=== PATIENT | female | born 1950 | race Caucasian/White ===

== ENCOUNTER 2019-10-11 15:25 | Emergency (ER) | payer OTHER, SELFPAY ==
--- NOTE | ~2019-10-11 | XR_ITS ---
EXAMINATION: XR chest 2V 10/11/2019 16:27 INDICATION: Cough with fever. Pulmonary hypertension. PROCEDURE: 2 view chest COMPARISON: No prior studies for comparison. FINDINGS: The lungs are clear. The cardiomediastinal silhouette is within normal limits. There are no pleural effusions. There is no pneumothorax suspected. The lungs are hyperinflated which is cons istent with, but not diagnostic of chronic obstructive pulmonary disease. IMPRESSION: 1: NO ACUTE CARDIOPULMONARY DISEASE. Reviewed, dictated and finalized at location A. RIMENTAL ASSEMBLER
[2019-10-11 15:29] VITALS: BP 120/71; PULSE 90; RESP 19; TEMP 37.3; O2SAT 99
--- NOTE | 2019-10-11 16:50 | ED.URI ---
HPI - URI/Sore Throat General Chief Complaint: Upper Respiratory Infection Stated Complaint: cough Time Seen by Provider: 10/11/19 16:17 Source: patient and RN notes reviewed Mode of arrival: ambulatory Limitations: no limitations History of Present Illness HPI Narrative: Pt is a 69 y/o female who presents to the ED with c/o moderate non-productive cough starting 5 days ago. She notes that she was seen at a [facility] for her symptoms, and states that she received a negative flu test. Pt reports wheezing for the past 3 nights and mild SOB accompanying her cough. She notes that her SOB is aggravated with exertion. Pt denies any fever or other symptoms. She notes that she recently received PFT that showed evidence of possible pulmonary hypertension. MD elicited complaint: cough Onset (ago): day(s) (5) Severity: moderate Associated symptoms: shortness of breath and other (wheezing) Related Data Allergies Allergy/AdvReac Type Severity Reaction Status Date / Time ciprofloxacin Allergy Intermediate Unknown Verified 10/11/19 16:46 codeine Allergy Intermediate DIZZINESS, Verified 10/05/14 15:30 VOMITING Iodinated Contrast Media Allergy Unknown Rash Verified 10/05/14 15:30 cefdinir Allergy Unknown Verified 10/11/19 16:46 dextrose Allergy Unknown Verified 10/11/19 16:46 iodine Allergy Unknown Verified 10/11/19 16:46 levofloxacin Allergy Unknown Verified 10/11/19 16:46 metrizamide Allergy Unknown Verified 10/11/19 16:46 shellfish derived Allergy Unknown Verified 10/11/19 16:46 CIPROFLOXACIN HCL Allergy Intermediate Unknown Uncoded 10/11/19 16:46 PSEUDOEPHEDRINE HCL Allergy Mild Unknown Uncoded 10/11/19 16:46 PROPOXYPHENE HCL Allergy Unknown Vomiting Uncoded 10/05/14 15:30 Review of Systems Review of Systems: All systems reviewed & are unremarkable except as noted in HPI and below Constitutional: Constitutional: Denies chills, Denies fever(s), Denies headache(s) and Denies weakness ENT: Denies headache(s) and Denies neck pain Cardiovascular: Cardiovascular: Denies chest pain Respiratory: Respiratory: Reports cough, Reports dyspnea and Reports wheezing Gastrointestinal: Gastrointestinal: Denies abdominal pain, Denies diarrhea, Denies nausea and Denies vomiting PMFSH Past Medical History Medical History Anemia Bronchitis GERD (gastroesophageal reflux disease) Pulmonary hypertension Shingles Sjogren's syndrome Surgical History Surgical History History of right oophorectomy Hx of hysterectomy Hx of tonsillectomy Social History Social History Smoking status: Never smoker Gender identity (if verbalized by the patient): Female Exam Const: General: no acute distress and well developed Orientation/consciousness: oriented to person, oriented to place, oriented to time and patient oriented x3 HENMT: Head: normocephalic Resp: Effort & Inspection: normal respiratory effort Auscultation: clear to auscultation bilaterally Cardio: Rate: regular rate Rhythm: regular rhythm GI: GI Palp: No abdominal tenderness and Yes Soft to palpation Skin: General skin exam: normal color and turgor normal Neuro: General: oriented to person, oriented to place, oriented to time and patient oriented x3 Cognition (Neuro): normal cognition Extrem: General: normal to inspection, full ROM and no pedal edema Psych: Appearance: grossly normal Mental Status: mental status grossly normal Affect: normal affect Course Vital Signs Vital signs: Vital Signs Temperature 37.3 C 10/11/19 15:29 Pulse Rate 90 10/11/19 15:29 Respiratory Rate 10/11/19 15:29 Blood Pressure 120/71 10/11/19 15:29 Pulse Oximetry 99 10/11/19 15:29 Temperature 37.3 C 10/11/19 15:29 Pulse Rate 90 10/11/19 15:29 Respiratory Rate 19 10/11/19 15:29 Blood Pressure 120/71 10/11
== END 2019-10-11 17:15 | disposition home or self-care (01) ==
PROVIDERS: Emergency Provider Emergency Medicine
DX: J06.9 Acute upper respiratory infection, unspecified (principal); K21.9 Gastro-esophageal reflux disease without esophagitis; M35.00 Sjogren syndrome, unspecified; I27.20 Pulmonary hypertension, unspecified
CPT/HCPCS: 71046; 87804; 99283

== ENCOUNTER 2020-09-12 14:10 | Emergency (ER) | payer MEDICARE, OTHER, SELFPAY ==
--- NOTE | ~2020-09-12 | CT_ITS ---
EXAMINATION: CT brain wo con INDICATION: Generalized weakness COMPARISON: None TECHNIQUE: Standard unenhanced head CT. The dose-length product (DLP) was 605.33 mGy-cm. The mA was a djusted according to patient size. Iterative reconstruction technique was employed. FINDINGS: Subtle low attenuation is seen in the left temporal lobe. There is no intracranial hemorrha ge or abnormal mass lesion. The ventricles are normal. There is no abnormal mass effect or midline sh ift. The carrasquillo-white matter differentiation is normal. The basal cisterns are patent. The orbits are n ormal. The paranasal sinuses, mastoids and calvarium are normal. IMPRESSION: 1. Subtle low attenuation of the left temporal lobe which could reflect subacute or old infarct. Reviewed, dictated and finalized at location A. DMAKER IMPRESSION: 1. Subtle low attenuation of the left temporal lobe which could reflect subacut e or old infarct.
[2020-09-12 14:14] VITALS: BP 140/72; PULSE 89; RESP 18; TEMP 36.4; O2SAT 100
--- NOTE | 2020-09-12 14:18 | ECG_ITS ---
Measurements Intervals [place] Rate: 90 P: 65 [place]: 164 QRS: 31 QRSD: 88 T: 54 QT: 368 QTc: 450 Interpretive Statements SINUS RHYTHM EARLY PRECORDIAL R/S TRANSITION BASELINE ARTIFACT- I, II, III, AVR, AVL, AVF BORDERLINE ECG Electronically Signed On 09-12-2020 16:32:24 MACHINE STONE POLISHER by Aurelio Rg D.O.
[2020-09-12 14:41] LABS: Basophils Absolute Auto 0.1 K/mm3 (0.0-0.1); Basophils Percent Auto 0.8 % (0.2-1.2); Eosinophils Absolute Auto 0.1 K/mm3 (0-0.3); Eosinophils Percent Auto 1.7 % (0-4.4); Hematocrit 40.3 % (37.0-47.0); Hemoglobin 13.3 g/dL (12.0-15.0); Immature Granulocyte Absolute 0.05 K/mm3 (0.00-0.031); Immature Granulocyte Percent A 0.8 % (0-0.5); Lymphocytes Absolute Auto 1.46 K/mm3 (0.9-3.2); Lymphocytes Percent Auto 22.7 % (18.3-44.2); Mean Corpuscular Hemoglobin 31.2 pg (26-34); Mean Corpuscular Volume 94.6 fl (80-100); Mean Platelet Volume 10.2 fl (7.4-10.4); Monocytes Absolute Auto 0.6 K/mm3 (0.1-0.6); Monocytes Percent Auto 8.7 % (2.6-8.5); Neutrophils Absolute Auto 4.2 K/mm3 (1.3-6.7); Neutrophils Percent Auto 65.3 % (45.5-73.1); Platelet Count Result 275 k/mm3 (150-375); Red Blood Count 4.26 M/mm3 (4.2-5.4); Red Cell Distribution Width 12.9 % (11.5-14.5); White Blood Count 6.4 K/mm3 (4.5-10.0)
[2020-09-12 14:54] LABS: Alanine Aminotransferase 18 U/L (4-35); Alkaline Phosphatase 108 U/L (38-126); Anion Gap 5 mmol/L (8-16); Aspartate Amino Transferase 31 U/L (14-36); Bilirubin,Total 0.4 mg/dL (0.2-1.3); Blood Urea Nitrogen 23 mg/dL (7-17); Carbon Dioxide 28 mmol/L (22-30); Chloride 105 mmol/L (98-107); Estimated CRCL calculation 73 ml/min; Estimated Glomerular Filt Rate > 60; Glucose 87 mg/dL (65-105); Potassium 3.8 mmol/L (3.4-5.0); Sodium 138 mmol/L (137-145)
--- NOTE | 2020-09-12 16:19 | ED.WEAKNESS ---
HPI - Weakness General Chief complaint: Weakness Stated complaint: weakness in legs x 2-3 weeks Time Seen by Provider: 09/12/20 15:44 History of Present Illness HPI Narrative: Intermittent leg weakness for the past 2 weeks. Not every day. Happens more often soon after standing, but can happen at any time. Yesterday had tingling in the right arm, which has resolved. She has a h/o BLE neuropathy. She has a h/o vertigo, she believes that this is a separate issue. No falls, loss of coordination, syncope, headache. Related Data Allergies Allergy/AdvReac Type Severity Reaction Status Date / Time ciprofloxacin Allergy Intermediate Unknown Verified 09/12/20 16:59 codeine Allergy Intermediate DIZZINESS, Verified 09/12/20 16:59 VOMITING Iodinated Contrast Media Allergy Unknown Rash Verified 09/12/20 16:59 cefdinir Allergy Unknown Verified 09/12/20 16:59 dextrose Allergy Unknown Verified 09/12/20 16:59 iodine Allergy Unknown Verified 09/12/20 16:59 levofloxacin Allergy Unknown Verified 09/12/20 16:59 metrizamide Allergy Unknown Verified 09/12/20 16:59 shellfish derived Allergy Unknown Verified 09/12/20 16:59 CIPROFLOXACIN HCL Allergy Intermediate Unknown Uncoded 09/12/20 16:59 PSEUDOEPHEDRINE HCL Allergy Mild Unknown Uncoded 09/12/20 16:59 PROPOXYPHENE HCL Allergy Unknown Vomiting Uncoded 09/12/20 16:59 Review of Systems Review of Systems: All systems reviewed & are unremarkable except as noted in HPI and below Constitutional: Constitutional: Denies fatigue and Denies fever(s) ENT: Denies sore throat Cardiovascular: Cardiovascular: Denies chest pain Respiratory: Respiratory: Denies dyspnea Gastrointestinal: Gastrointestinal: Denies nausea Genitourinary: Genitourinary: Reports nocturia and Denies dysuria Musculoskeletal: Musculoskeletal: Denies back pain Neurologic: Reports vertigo, Denies numbness and Denies weakness [facility] Past Medical History Medical History (Updated 09/13/20 @ 00:00 by Background Daemon) Anemia Bronchitis GERD (gastroesophageal reflux disease) Pulmonary hypertension Shingles Sjogren's syndrome Surgical History Surgical History History of right oophorectomy Hx of hysterectomy Hx of tonsillectomy Social History Social History Smoking status: Never smoker Gender identity (if verbalized by the patient): Female Exam Const: General: healthy appearing, no acute distress and alert Orientation/consciousness: patient oriented x3 HENMT: Head: normal to inspection Eyes: Pupils: Equal, round and reactive pupils present EOM: EOMs intact bilaterally Resp: Effort & Inspection: normal respiratory effort Auscultation: clear to auscultation bilaterally Cardio: Rate: regular rate Rhythm: regular rhythm GI: GI Palp: Yes Soft to palpation and No Tenderness to palpation present (GI) Skin: General skin exam: normal color Neuro: General: patient oriented x3, moves all extremities and CN's II-XI intact bilaterally Speech: normal speech Other: Mildly delayed [id number] without obvious cerebellar dysfunction Extrem: General: normal to inspection Course Vital Signs Vital signs: Vital Signs Temperature 36.4 C L 09/12/20 14:14 Pulse Rate 89 09/12/20 14:14 Respiratory Rate 18 09/12/20 14:14 Blood Pressure 140/72 09/12/20 14:14 Pulse Oximetry 100 09/12/20 14:14 Temperature 36.4 C L 09/12/20 14:14 Pulse Rate 87 09/12/20 17:59 Respiratory Rate 20 09/12/20 17:59 Blood Pressure 131/83 09/12/20 17:59 Pulse Oximetry 100 09/12/20 17:59 MDM - Weakness Differential Diagnosis Differential diagnosis: Likely other (UTI, anemia, CVA, vertigo, dehydration) Medical Records Attestation: I reviewed the patient's medical records. Lab Data Attestation: I reviewed the patient's lab results. Result diagrams: 09/12/20 14:35 09/12/20 14:35
[2020-09-12 16:35] LABS: Add Urine Microscopic? YES; Appearance Urine Cloudy (Clear); Bacteria Urine 2+ /hpf; Bilirubin Urine Negative (Negative); Color Urine Yellow (Yellow); Glucose Urine UA Negative (Negative); Ketones Urine Trace mg/dL (Negative); Leukocyte Esterase Ur 1+ LEU/UL (Negative); Mucus Urine Moderate /lpf; Nitrate Urine Positive (Negative); Protein Urine Negative (Negative); Squamous Epithelial Cell Urine Occasional /hpf (Few); Urobilinogen Urine Negative mg/dL (<2.0); WBC Urine 51-75 /hpf
[2020-09-12 16:37] LABS: Blood Urine Negative (Negative)
[2020-09-12 17:00] VITALS: BP 131/63; PULSE 87; RESP 14; O2SAT 100
[2020-09-12 17:59] VITALS: BP 131/83; PULSE 87; RESP 20; O2SAT 100
== END 2020-09-12 18:02 | disposition home or self-care (01) ==
PROVIDERS: Emergency Medicine; Emergency Provider Emergency Medicine
DX: N39.0 Urinary tract infection, site not specified (principal); R53.1 Weakness; Z86.2 Personal history of diseases of the blood and blood-forming organs and certain disorders involving the immune mechanism; K21.9 Gastro-esophageal reflux disease without esophagitis; I27.20 Pulmonary hypertension, unspecified; M35.00 Sjogren syndrome, unspecified
CPT/HCPCS: 36415; 70450; 80053; 81001; 85025; 87077; 87086; 87088; 87186; 93005; 99284

== ENCOUNTER 2022-06-29 13:00 | Outpatient (RCR) | payer MEDICARE, OTHER, SELFPAY ==
--- NOTE | 2022-04-07 16:53 | OTOPEVAL ---
Thank you for referring Kendy Hood to [facility].? The patient is scheduled to be seen for therapy? ____x/week for ___ weeks. Please review, sign, date and return this plan of care GARCIA. I agree with and certify that the following plan of care is medically necessary. Referring Physician Date Admitting Provider: Attending Provider: MICHELLE ROLLE Referring Provider: *OT Outpatient Evaluation Start: 04/07/22 07:51 Freq: Status: Active Protocol: Document 04/07/22 14:52 SLS (Rec: 04/07/22 16:36 [facility] [id number]) Therapy Assessment Status Assessment Status Assessment Status Evaluation Outpatient Past Medical History Past Medical History Source of Past Medical History Patient Respiratory History Hx Other Respiratory Disorders Yes: PULMONARY HYPERTENSION Musculoskeletal History Hx Other Musculoskeletal Disorders Yes: SJOGREN'S DISEASE Pain History History of Any Previous or Ongoing No Significant History Instance of Pain Evaluation Information Problem Diagnosis UE Weakness and coordination deficits Onset 03/22/2022 Cause Weakness Additional Evaluation Detail Weakness, balance deficits, dizziness Subjective Information Patient has had a change in Query Text:As Reported By Patient/ generalized weakness, balance Family and speech that has been progressing over multiple years. The patient began PT last year and has attempted to improve and maintain LE strength. The patient has had difficulties with household tasks, moving from sitting/ standing position and coordination. The patient reports feeling no pain but feeling much weaker within the last year. The patient reports 3 falls since August 2021. Prior to the decline, the patient was independent with all cartoonist special effects and was not experiencing balance deficits and falls. Prior Level of Function Home Setting Home Type House Living Situation With Spouse Support Available None Mobility Assistive Devices (Used Last 3 Cane Months) Bathroom Environment Bathtub, Standard Toileting Equipment Grab Bars Pain Assessment Timing of
--- NOTE | 2022-04-07 17:32 | PTOPEVAL ---
Thank you for referring Kendy Hood to [facility].? The patient is scheduled to be seen for therapy? 1-2x/week for 12 visits. Please review, sign, date and return this plan of care GARCIA. I agree with and certify that the following plan of care is medically necessary. Referring Physician Date Admitting Provider: Attending Provider: MICHELLE ROLLE Referring Provider: *PT Outpatient Evaluation Start: 04/07/22 14:58 Freq: Status: Active Protocol: Document 04/07/22 15:02 [facility] (Rec: 04/07/22 17:31 [facility] [email or web address]) Therapy Assessment Status Assessment Status Assessment Status Evaluation Outpatient Past Medical History Respiratory History Hx Other Respiratory Disorders Yes: PULMONARY HYPERTENSION Musculoskeletal History Hx Other Musculoskeletal Disorders Yes: SJOGREN'S DISEASE Evaluation Information Problem Diagnosis Unsteady gait Onset 04/07/2021 Subjective Information Pt reports weakness, balance, Query Text:As Reported By Patient/ and dizziness that has been Family worsening over the past year. Pt reports she has had an MRI with one MD telling her she has age-related changes and the other mentioning deficits with her cerebellum. She reports 3 falls since involving a mild injury to her tailbone that has since resolved. She reports these falls occured 2 times when taking a step backwards, and once when stepping onto an altered surface. Pt has been using an SPC for about the past year since her condition has been worsening. She has 2 sets of 2 steps in her house, both with a handrail. Her Jr has been assisting her with several household activities such as cleaning and cooking. Pt notes most difficulties with her balance when her eyes are closed, when she is getting up, or walking . Reports her dizziness as disequilibrium and occasional lightheadedness. Pt went to [facility] in [place] and reports
--- NOTE | 2022-04-11 08:24 | OTOPEVAL ---
Thank you for referring Kendy Hood to [facility].? The patient is scheduled to be seen for therapy? ____x/week for ___ weeks. Please review, sign, date and return this plan of care GARCIA. I agree with and certify that the following plan of care is medically necessary. Referring Physician Date Admitting Provider: Attending Provider: MICHELLE ROLLE Referring Provider: *OT Outpatient Evaluation Start: 04/07/22 07:51 Freq: Status: Active Protocol: Document 04/07/22 14:52 SLS (Rec: 04/07/22 16:36 [facility] [id number]) Therapy Assessment Status Assessment Status Assessment Status Evaluation Outpatient Past Medical History Past Medical History Source of Past Medical History Patient Respiratory History Hx Other Respiratory Disorders Yes: PULMONARY HYPERTENSION Musculoskeletal History Hx Other Musculoskeletal Disorders Yes: SJOGREN'S DISEASE Pain History History of Any Previous or Ongoing No Significant History Instance of Pain Evaluation Information Problem Diagnosis UE Weakness and coordination deficits Onset 03/22/2022 Cause Weakness Additional Evaluation Detail Weakness, balance deficits, dizziness Subjective Information Patient has had a change in Query Text:As Reported By Patient/ generalized weakness, balance Family and speech that has been progressing over multiple years. The patient began PT last year and has attempted to improve and maintain LE strength. The patient has had difficulties with household tasks, moving from sitting/ standing position and coordination. The patient reports feeling no pain but feeling much weaker within the last year. The patient reports 3 falls since August 2021. Prior to the decline, the patient was independent with all share holder and was not experiencing balance deficits and falls. Prior Level of Function Home Setting Home Type House Living Situation With Spouse Support Available None Mobility Assistive Devices (Used Last 3 Cane Months) Bathroom Environment Bathtub, Standard Toileting Equipment Grab Bars Pain Assessment Timing of
--- NOTE | 2022-04-18 15:24 | STOPEVAL ---
Thank you for referring Kendy Hood to [facility]Note 3[facility]? The patient is scheduled to be seen for therapy? 2x/week for 10 sessions. Please review, sign, date and return this plan of care GARCIA. I agree with and certify that the following plan of care is medically necessary. Referring Physician Date Admitting Provider: Attending Provider: MICHELLE ROLLE Referring Provider: ABRAHAN Outpatient Evaluation Start: 04/18/22 13:28 Freq: Status: Active Protocol: Document 04/18/22 13:28 [facility] (Rec: 04/18/22 15:24 [facility] [id number]) Therapy Assessment Status Assessment Status Assessment Status Evaluation Outpatient Past Medical History Past Medical History Source of Past Medical History Patient Respiratory History Hx Other Respiratory Disorders Yes: PULMONARY HYPERTENSION Musculoskeletal History Hx Other Musculoskeletal Disorders Yes: SJOGREN'S DISEASE Pain History History of Any Previous or Ongoing No Significant History Instance of Pain Anesthesia History Hx Anesthesia Reactions No Significant History Evaluation Information Problem Diagnosis R47.9 unspecified speech disturbance Additional Evaluation Detail Sj?gren syndrome Subjective Information Patient reports to recently Query Text:As Reported By Patient/ have an increase in difficulty Family speaking with impaired volume , pitch breaks, breathiness and hoarseness. Patient is very frustrated with her voice and often has to repeat herself in various environments. Patient also reported that she has difficulty swallowing but has recently seen some improvements. Diagnostic Tests MRI For This Problem Yes Previous Treatments Previous Treatments For This Problem NO previous ST treatment Pain Assessment Timing of Pain Assessment Timing of Pain Assessment Assessment Self Report Self Report Pain Level 0 Pain Score Pain Score 0: Self Report Voice Evaluation Voice History Voice History Patient began having voice difficulties around one year ago. She was diagnosed with Sjogren's syndrome years ago and it is an autoimmune disorder that attacks healthy cells for saliva and tear production. It is known to affect swallowing and voice (
--- NOTE | 2022-05-11 13:50 | PCSTNOTE ---
Patient called & cancelled scheduled appointment this date due to patient being sick
--- NOTE | 2022-05-18 18:25 | PTOPPROG ---
Evaluation Information Assessment Status Progress Diagnosis Unsteady gait Onset 04/07/2021 Subjective Information Pt denies falls since most recent session. She is happy with her progress with PT so far. Assessment PT Clinical Summary Pt presents to physical therapy with significant improvements in functional strength since her initial evaluation. She has made several improvements in her static and dynamic balance but still demonstrates limitations and is reliant on her SPC. She will continue to benefit from skilled PT to further decrease her risk for falls, improve her independence with activities, and help her return to functional and recreational activities. Plan of Care PT Services Indicated Yes Treatment Frequency and 1-2x week for 8 visits Duration These treatments will address the objective and functional deficits as defined above. The patient will be advanced safely and appropriately in order for the patient to progress towards his/her prior level of function. Additional exercises will be introduced and as well as a comprehensive home exercise program upon discharge, if needed, ?to ensure carryover of functional gains achieved in the clinic. This treatment plan has been reviewed and agreement upon by the patient.
--- NOTE | 2022-05-23 09:30 | PCSTNOTE ---
Appointment cancelled on May 18 due to SCIENTIFIC INFORMATICS LEADER being out of the office.
--- NOTE | 2022-06-06 14:10 | STOPREEVAL ---
Assessment and note entered by FRAN Sexton Evaluation Information Assessment Status Re-evaluation Reported Pain Level Pain Score 0: Self Report Assessment ST Clinical Summary Patient continues to demonstrate difficulty swallowing, voice and breathing during phonation. Patient reports that her voice has not gotten worse but continues to have to repeat herself frequently with vocal hoarseness and breathiness. Therapy will continue to focus on breathing strategies, resonant voice therapy to reduce tension in the vocal cords, and good vocal hygene. Therapy will also continue to focus on treatment for swallowing to reduce coughing with food and fluids. Recommendation for ST to target dysphagia and voice therapy 2x per week for 10 sessions. Plan of Care Interventions Treatment of Swallowing D,Other Other Interventions voice and swallowing Treatment Frequency and 2x/week for 10 sessions Duration These treatments will address the objective and functional deficits as defined above. The patient will be advanced safely and appropriately in order for the patient to progress towards his/her prior level of function. Additional exercises will be introduced and as well as a comprehensive home exercise program upon discharge, if needed, ?to ensure carryover of functional gains achieved in the clinic. This treatment plan has been reviewed and agreement upon by the patient.
--- NOTE | 2022-06-12 15:02 | OTOPPROG ---
Assessment and note entered by Kelle Lopez OT Evaluation Information Assessment Status Progress Assessment OT Clinical Summary The patient made significant progress in UE strength, stock preparer strength, and gross motor coordination improving the patient's ability to perform overhead self care tasks, maintain UE strength and perform homemaking tasks at home to assist . The patient did not make progress in R UE shoulder/elbow strength due to patient's continued shoulder pain and current medical condition affecting coordination and endurance. The patient has been educated on UE HEP and to return to MD to determine neurological deficits that could be present and affecting her balance, endurance, and speech. The patient continues to require skilled OT to address R shoulder pain, UE strength, stock preparer/pinch strength and gross motor coordination needed to perform self care tasks and assist patient's spouse with charge master coordinator. Plan of Care Interventions Therapeutic Exercise,Manual Therapy,Neuro Re- education,Therapeutic Activities,Hot Pack/Cold Pack,Electrical Stimulation,Self-Care/Home Management,Ultrasound OT Services Indicated Yes Treatment Frequency and 2x/week for 6 weeks Duration These treatments will address the objective and functional deficits as defined above. The patient will be advanced safely and appropriately in order for the patient to progress towards his/her prior level of function. Additional exercises will be introduced and as well as a comprehensive home exercise program upon discharge, if needed, ?to ensure carryover of functional gains achieved in the clinic. This treatment plan has been reviewed and agreement upon by the patient.
--- NOTE | 2022-06-15 15:12 | PTOPPROG ---
Assessment and note entered by Ирина Jimenez DPT Evaluation Information Assessment Status Progress Diagnosis Unsteady gait Onset 04/07/2021 Subjective Information Pt reports that she is doing well but feels shaky today. She continues to have R shoulder pain. She has not experienced any falls since her most recent session. She reports the most difficulty with her balance when walking down the 2 steps to her laundry room. Assessment PT Clinical Summary Pt presents to physical therapy with significant improvements in static balance testing and strength since her initial evaluation. However, she is still quite limited in dynamic balance especially when walking or using stairs. She will benefit from additional skilled PT to further decrease risk for falls, improve the aforementioned impairments, and increase independence with functional and recreational activities. Additionally, pt was encouraged to look into an ENT for her lasting and significant dizziness. Plan of Care PT Services Indicated Yes Treatment Frequency and 1x week for 6 visits Duration These treatments will address the objective and functional deficits as defined above. The patient will be advanced safely and appropriately in order for the patient to progress towards his/her prior level of function. Additional exercises will be introduced and as well as a comprehensive home exercise program upon discharge, if needed, ?to ensure carryover of functional gains achieved in the clinic. This treatment plan has been reviewed and agreement upon by the patient.
--- NOTE | 2022-07-10 14:15 | PCSTNOTE ---
This treatment is being continued on visit number [id number]. Please see documentation on both accounts to view progress. Completed interventions, outcomes, and problems have been marked as Inactive to facilitate the copying of the Care plan routine for recurring accounts.
== END 2023-01-09 23:59 | disposition home or self-care (01) ==
LOC: CHSST 13:00
DX: R47.9 Unspecified speech disturbances (principal); R26.89 Other abnormalities of gait and mobility; R49.0 Dysphonia
CPT/HCPCS: 92507; 92524; 92526; 97110; 97112; 97162; 97165; 97530

== ENCOUNTER 2022-09-26 13:00 | Outpatient (RCR) | payer MEDICARE, OTHER, SELFPAY ==
--- NOTE | 2022-07-10 14:29 | PCSTNOTE ---
The treatment documented on this account is a continuation of the treatment documented on visit number [id number]. Please see documentation on both accounts to view progress. The Plan of Care has been transitioned and updated within the new A#. I have addressed and agree with the discipline specific Problems, Interventions, and Goals for the current certification period. Completed interventions, outcomes, and problems have been marked as Inactive to facilitate the copying of the Care plan routine for recurring accounts.
--- NOTE | 2022-07-25 14:52 | OTOPPROG ---
Assessment and note entered by Kelle Lopez, OT Evaluation Information Assessment Status Progress Assessment OT Clinical Summary The patient has made significant progress in pain symptoms, L UE strength, and gross motor coordination affecting the patient's ability to perform self care tasks and maintain safety. The patient did not make progress in electricity trader/pinch strength and fine motor coordination due to fluctuating levels of tremors that make it difficult to maintain grasp of small items. The patient continues to require skilled OT to improve electricity trader/pinch strength, fine motor coordination, shoulder pain needed to maximize independence and avoid risk of decline. The patient requires continued skilled instruction to maintain UE strength and to maintain ROM of R shoulder. Plan of Care Interventions Therapeutic Exercise,Manual Therapy,Therapeutic Activities,Hot Pack/Cold Pack,Self-Care/Home Management,Ultrasound OT Services Indicated Yes Treatment Frequency and 1x/week for 10 visits. Duration These treatments will address the objective and functional deficits as defined above. The patient will be advanced safely and appropriately in order for the patient to progress towards his/her prior level of function. Additional exercises will be introduced and as well as a comprehensive home exercise program upon discharge, if needed, ?to ensure carryover of functional gains achieved in the clinic. This treatment plan has been reviewed and agreement upon by the patient.
--- NOTE | 2022-07-31 15:10 | PTOPEVAL1 ---
Assessment and note entered by Ирина Jimenez DPT Evaluation Information Assessment Status Progress Diagnosis Unsteady gait Onset 04/07/2021 Subjective Information Pt reports that she feels shaky today. Pt reports that she had to take a dizzy pill a couple of times this weekend. She has an appointment with her ENT on 09/13/21. Pt reports that she saw a new neurologist on Sunday who wants to perform an MRI of her neck and an EMG on her legs and arms, as well as a blood test. 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 She reports no LOB or falls since her last session. Pt reports that she still has the most difficulty with walking and stepping up and down steps/curbs. Reported Pain Level Pain Score 3: Self Report Assessment PT Clinical Summary Pt presents to physical therapy with continued slight improvements/maintenance of strength, balance, and endurance. Due to the seemingly progressive state of her condition and continued high risk for falls in combination with her improvements from PT so far, she would benefit from skilled maintenance PT going forward. Maintenance therapy is indicated as the patient would likely have a difficult time maintaining her current functional level without skilled PT to assist her. This date, the patient was educated on beginning to walk with a walker instead of just a cane to improve her safety in the home and out in the community, especially during increased fatigue or dizziness. Plan of Care PT Services Indicated Yes Treatment Frequency and 1x week for 10 visits Duration These treatments will address the objective and functional deficits as defined above. The patient will be advanced safely and appropriately in order for the patient to progress towards his/her prior level of function. Additional exercises will be introduced and as well as a comprehensive home exercise program upon discharge, if needed, ?to ensure carryover of functional gains achieved in the clinic. This treatment plan has been reviewed and agreement upon by the patient.
--- NOTE | 2022-07-31 16:03 | STOPPROG ---
Assessment and note entered by Natalie Walter ELECTRICAL AND INSTRUMENTATION MANAGER Evaluation Information Assessment Status Progress Assessment Status Progress Assessment ST Clinical Summary Patient continues to demonstrate difficulty swallowing, voice and breathing during phonation. Patient reports that her voice has not gotten worse but continues to have to repeat herself frequently with vocal hoarseness and breathiness. Therapy will continue to focus on breathing strategies, resonant voice therapy to reduce tension in the vocal cords, swallowing compensatory techniques, swallowing exercises, and speech intelligibility tasks. Recommendation for ST to continue to target dysphagia R13.10 and voice/speech therapy 1x per week for 10 sessions. Plan of Care Interventions Treatment of Speech,Treatment of Swallowing D, Treatment of Voice ST Services Indicated Yes Treatment Frequency and 1x/week for 10 sessions Duration These treatments will address the objective and functional deficits as defined above. The patient will be advanced safely and appropriately in order for the patient to progress towards his/her prior level of function. Additional exercises will be introduced and as well as a comprehensive home exercise program upon discharge, if needed, ?to ensure carryover of functional gains achieved in the clinic. This treatment plan has been reviewed and agreement upon by the patient.
--- NOTE | 2022-09-19 18:39 | PCSTNOTE ---
Patient's appointment was cancelled this date due to NURSE CLINICIAN being out of office due to sick child.
--- NOTE | 2022-09-26 15:29 | OTOPPROG ---
Assessment and note entered by Kelle oLpez OT Evaluation Information Assessment Status Progress Assessment OT Clinical Summary The patient demonstrates significant progress in R child psychometrist strength, fine motor coordination, and UE strength at this time affecting her ability to hold items for self care tasks and IADLs to contribute to her household. The patient did not make progress in, but maintained current function in pinch strength and shoulder pain due to continued progress toward goals. The patient reports she does not feel a decline in function and continues to work toward regaining strength and coordination. The patient demonstrates good carryover of exercises and activities given by therapist. The patient also demonstrates good potential to preserve function through current maintenance program in order to decrease her risk of falls at home and decline in independence. The patient maintains modified independence at home with ADLs and has assistance from spouse for IADLs as needed. The patient's fluctuating levels of fatigue, balance and endurance affect her ability to improve at this time due to undiagnosed neurological symptoms. The patient continues to seek medical intervention and requires continued OT to maintain function while seeking further medical assistance. Plan of Care Interventions Therapeutic Exercise,Manual Therapy,Neuro Re- education,Therapeutic Activities,Hot Pack/Cold Pack,Electrical Stimulation,Self-Care/Home Management,Ultrasound OT Services Indicated Yes Treatment Frequency and 1x/week for 10 visits. Duration These treatments will address the objective and functional deficits as defined above. The patient will be advanced safely and appropriately in order for the patient to progress towards his/her prior level of function. Additional exercises will be introduced and as well as a comprehensive home exercise program upon discharge, if needed, ?to ensure carryover of functional gains achieved in the clinic. This treatment plan has been reviewed and agreement upon by the patient.
--- NOTE | 2022-10-17 14:26 | PCSTNOTE ---
This treatment is being continued on visit number [id number]. Please see documentation on both accounts to view progress. Completed interventions, outcomes, and problems have been marked as Inactive to facilitate the copying of the Care plan routine for recurring accounts.
== END 2022-10-10 15:08 | disposition still patient (30) ==
LOC: CHSST 13:00
DX: R47.9 Unspecified speech disturbances (principal); R26.89 Other abnormalities of gait and mobility; R49.0 Dysphonia
CPT/HCPCS: 92507; 92526; 97110; 97112; 97140; 97530

== ENCOUNTER 2023-01-09 13:00 | Outpatient (RCR) | payer MEDICARE, OTHER, SELFPAY ==
--- NOTE | 2022-10-17 14:27 | PCSTNOTE ---
The treatment documented on this account is a continuation of the treatment documented on visit number [id number]. Please see documentation on both accounts to view progress. The Plan of Care has been transitioned and updated within the new A#. I have addressed and agree with the discipline specific Problems, Interventions, and Goals for the current certification period. Completed interventions, outcomes, and problems have been marked as Inactive to facilitate the copying of the Care plan routine for recurring accounts.
--- NOTE | 2022-10-17 15:49 | OTOPPROG ---
Assessment and note entered by Kelle Lopez OT Evaluation Information Assessment Status Progress Diagnosis Other abnormalities of gait and mobility Onset 2021 Subjective Information The patient reports she is continuing to seek answers from neurologist concerning her change in function. She reports she will be seeing a fishing vessel deckhand to address autoimmune disorder that she has been having symptoms with such as swallowing and her eyes being impacted. The patient reports that she performs some exercise at home with continuing to focus on treatment here. The patient reports she has not noticed a decline in function since treatment has started. Assessment OT Clinical Summary The patient demonstrates signficant progress in UE endurance, box lining machine feeder strength, pinch strength, and has maintained function of fine motor coordination of L hand leading to increased ability to dress self , prepare small meals, and maintain balance with FWW as needed to maintain safety at home. The patient demonstrates good participation during therapy sessions and is motivated to come to treatment. The patient's pain in shoulder has not changed, due to plateau in progress the patient was educated to contact her MD to address this issue. The patient demonstrates decreased trunk control with 3+/5 muscle strength in trunk flexion and demonstrates G-F+ static/dynamic sitting balance which affect her ability to sit on the EOB to dress self. The patient continues to demonstrate deficits in box lining machine feeder/pinch strength, sitting balance/trunk strength, UE endurance, and fine motor coordination which affect her ability to maintain highest level of independence within her home and decrease caregiver burden. The patient to continue with OT 1x/week to address these deficits and provide UE HEP to perform with 100% return demonstration in order to maintain strength and endurance at home. The patient requires skilled OT to address current deficits, decreasing patient's risk of decline and to ensure good transition to discharge as appropriate. Plan of Care Interventions Therapeutic Exercise,Manual Therapy,Neuro Re- education,Therapeutic Activities,Hot Pack/Cold Pack,Self-Care/Home Management,Ultrasound OT Services Indicated Yes Treatment Frequency and 1x/week for 10 visits. Duration These treatments will
--- NOTE | 2022-10-17 15:53 | OTOPPROG ---
Assessment and note entered by Kelle Lopez OT Evaluation Information Assessment Status Progress Diagnosis Other abnormalities of gait and mobility Onset 2021 Subjective Information The patient reports she is continuing to seek answers from neurologist concerning her change in function. She reports she will be seeing a rigging supervisor to address autoimmune disorder that she has been having symptoms with such as swallowing and her eyes being impacted. The patient reports that she performs some exercise at home with continuing to focus on treatment here. The patient reports she has not noticed a decline in function since treatment has started. Assessment OT Clinical Summary The patient demonstrates signficant progress in UE endurance, pacu nurse strength, pinch strength, and has maintained function of fine motor coordination of L hand leading to increased ability to dress self , prepare small meals, and maintain balance with FWW as needed to maintain safety at home. The patient demonstrates good participation during therapy sessions and is motivated to come to treatment. The patient's pain in shoulder has not changed, due to plateau in progress the patient was educated to contact her MD to address this issue. The patient demonstrates decreased trunk control with 3+/5 muscle strength in trunk flexion and demonstrates G-F+ static/dynamic sitting balance which affect her ability to sit on the EOB to dress self. The patient continues to demonstrate deficits in pacu nurse/pinch strength, sitting balance/trunk strength, UE endurance, and fine motor coordination which affect her ability to maintain highest level of independence within her home and decrease caregiver burden. The patient to continue with OT 1x/week to address these deficits and provide UE HEP to perform with 100% return demonstration in order to maintain strength and endurance at home. The patient requires skilled OT to address current deficits, decreasing patient's risk of decline and to ensure good transition to discharge as appropriate. Plan of Care Interventions Therapeutic Exercise,Manual Therapy,Neuro Re- education,Therapeutic Activities,Hot Pack/Cold Pack,Self-Care/Home Management,Ultrasound OT Services Indicated Yes Treatment Frequency and 1x/week for 10 visits. Duration These treatments will
--- NOTE | 2022-10-17 15:57 | OTOPEVAL1 ---
Assessment and note entered by Kelle Lopez OT Evaluation Information Assessment Status Progress Diagnosis Other abnormalities of gait and mobility Onset 2021 Subjective Information The patient reports she is continuing to seek answers from neurologist concerning her change in function. She reports she will be seeing a director of event sales to address autoimmune disorder that she has been having symptoms with such as swallowing and her eyes being impacted. The patient reports that she performs some exercise at home with continuing to focus on treatment here. The patient reports she has not noticed a decline in function since treatment has started. Reported Pain Level Pain Score 0: Self Report Pain Score 0: Self Report Additional Pain Score Comments Patient reports pain in shoulder at it's worse at 3/10 which has not changed since treatment has begun. Assessment OT Clinical Summary The patient demonstrates signficant progress in UE endurance, second watch sergeant strength, pinch strength, and has maintained function of fine motor coordination of L hand leading to increased ability to dress self , prepare small meals, and maintain balance with FWW as needed to maintain safety at home. The patient demonstrates good participation during therapy sessions and is motivated to come to treatment. The patient's pain in shoulder has not changed, due to plateau in progress the patient was educated to contact her MD to address this issue. The patient demonstrates decreased trunk control with 3+/5 muscle strength in trunk flexion and demonstrates G-F+ static/dynamic sitting balance which affect her ability to sit on the EOB to dress self. The patient continues to demonstrate deficits in second watch sergeant/pinch strength, sitting balance/trunk strength, UE endurance, and fine motor coordination which affect her ability to maintain highest level of independence within her home and decrease caregiver burden. The patient to continue with OT 1x/week to address these deficits and provide UE HEP to perform with 100% return demonstration in order to maintain strength and endurance at home. The patient requires skilled OT to address current deficits, decreasing patient's risk of decline and to ensure good transition to discharge as appropriate. Plan of Care Interventions T
--- NOTE | 2022-10-20 08:27 | BUOTOPEVAL ---
Assessment and note entered by Kelle Lopez OT Evaluation Information Assessment Status Progress Diagnosis Other abnormalities of gait and mobility Onset 2021 Subjective Information The patient reports she is continuing to seek answers from neurologist concerning her change in function. She reports she will be seeing a chemical unit operator to address autoimmune disorder that she has been having symptoms with such as swallowing and her eyes being impacted. The patient reports that she performs some exercise at home with continuing to focus on treatment here. The patient reports she has not noticed a decline in function since treatment has started. Reported Pain Level Pain Score 0: Self Report Pain Score 0: Self Report Pain Score 0: Self Report Additional Pain Score Comments Patient reports pain in shoulder at it's worse at 3/10 which has not changed since treatment has begun. Assessment OT Clinical Summary The patient demonstrates signficant progress in UE endurance, ballistics expert forensic strength, pinch strength, and has maintained function of fine motor coordination of L hand leading to increased ability to dress self , prepare small meals, and maintain balance with FWW as needed to maintain safety at home. The patient demonstrates good participation during therapy sessions and is motivated to come to treatment. The patient's pain in shoulder has not changed, due to plateau in progress the patient was educated to contact her MD to address this issue. The patient demonstrates decreased trunk control with 3+/5 muscle strength in trunk flexion and demonstrates G-F+ static/dynamic sitting balance which affect her ability to sit on the EOB to dress self. The patient continues to demonstrate deficits in ballistics expert forensic/pinch strength, sitting balance/trunk strength, UE endurance, and fine motor coordination which affect her ability to maintain highest level of independence within her home and decrease caregiver burden. The patient to continue with OT 1x/week to address these deficits and provide UE HEP to perform with 100% return demonstration in order to maintain strength and endurance at home. The patient requires skilled OT to address current deficits, decreasing patient's risk of decline and to ensure good transition to di
--- NOTE | 2022-10-24 16:21 | PTOPDC ---
Assessment and note entered by Erinn Troy DPT Evaluation Information Assessment Status Re-evaluation Diagnosis Unsteady gait Onset 04/07/2021 Subjective Information patient reports that much has changed functionally with walking, stair navigation or getting up and down. she states that her shoulder is ther primary pain location but denies LE pain or discomfort. she reports she continues to use the walker at all times and needs help from her for stair navigation into the house. She denies falls since last re-evaluation Reported Pain Level Pain Score 0: Self Report Pain Score 0: Self Report Additional Pain Score Comments Patient reports pain in shoulder at it's worse at 3/10 which has not changed since treatment has begun. Assessment PT Clinical Summary Patient is a 72 year old female who presents today for a re-evalulation from 04/07/22-10/24/22. Today she presents with no functional or objective improvements towards goals. She denies falls but requires walker at all times as well as assist from her for stair navigation. Patient was provided a HEP handout and demonstrates good understanding of program at this time. Patient will be discharged to independent [facility]. Plan of Care PT Services Indicated No Treatment Frequency and DC to independent HEP Duration
--- NOTE | 2022-10-24 16:23 | PTOPDC ---
Assessment and note entered by Erinn Troy DPT Evaluation Information Assessment Status Re-evaluation Diagnosis Unsteady gait Onset 04/07/2021 Subjective Information patient reports that not much has changed functionally with walking, stair navigation or getting up and down. she states that her shoulder is ther primary pain location but denies LE pain or discomfort. she reports she continues to use the walker at all times and needs help from her for stair navigation into the house. She denies falls since last re-evaluation Reported Pain Level Pain Score 0: Self Report Pain Score 0: Self Report Assessment PT Clinical Summary Patient is a 72 year old female who presents today for a re-evalulation from 04/07/22-10/24/22. Today she presents with no functional or objective improvements towards goals. She denies falls but requires walker at all times as well as assist from her for stair navigation. Patient was provided a HEP handout and demonstrates good understanding of program at this time. Patient will be discharged to independent HEP. Plan of Care PT Services Indicated No Treatment Frequency and DC to independent HEP Duration
--- NOTE | 2022-10-31 14:09 | STOPREEVAL ---
Assessment and note entered by Natalie Walter DIGITAL MUSIC INSTRUCTOR Evaluation Information Assessment Status Re-evaluation Reported Pain Level Pain Score 0: Self Report Assessment ST Clinical Summary Patient has attended 10 treatment sessions with speech therapy. Patient continues to demonstrate mild difficulty swallowing, voice, speech intelligibility and breathing during phonation. Patient reports that her voice has not gotten worse but continues to have to repeat herself frequently with vocal hoarseness and breathiness. Therapy will continue to focus on breathing strategies, SLOP B (slow, loud, over articulate, pause and breath) at conversation level, swallowing compensatory techniques, swallowing exercises, and speech intelligibility tasks. Recommendation for ST to continue to target dysphagia R13.10 and voice/speech therapy 1x per week for 10 sessions. Discussion with patient regarding plan to discharge after these 10 sessions. Plan of Care Interventions Treatment of Speech,Treatment of Swallowing D, Treatment of Voice ST Services Indicated Yes Treatment Frequency and 1x/week for 10 sessions Duration These treatments will address the objective and functional deficits as defined above. The patient will be advanced safely and appropriately in order for the patient to progress towards his/her prior level of function. Additional exercises will be introduced and as well as a comprehensive home exercise program upon discharge, if needed, ?to ensure carryover of functional gains achieved in the clinic. This treatment plan has been reviewed and agreement upon by the patient.
--- NOTE | 2023-01-09 15:13 | STOPDC ---
Assessment and note entered by Natalie Walter RECORD CHANGER Evaluation Information Assessment Status Discharge Diagnosis voice, speech intelligibility, and dysphagia Onset over one year Reported Pain Level Pain Score 0: Self Report Assessment ST Clinical Summary Patient has attended a total of 40 treatment sessions with speech therapy to target dysphagia, speech intelligibility, and voice. Patient currently presents with very little difficulty swallowing (one coughing epsiode or less with po intake per week), mild voice difficulties, and 90% intelligible speech at the conversation level. Patient continues to demonstrate with difficulty coordinating oral motor movements for more complex words and sentences. Patient reports that she has noticed a significant improvement in her overall swallowing function and is very happy with how she is doing. She reported that she continues to struggle with coordination for oral motor movements but feels that she is doing overall better and has to repeat herself less often. Patient's spouse reported that he continues to hear improvement in the patient's overall speech skills. Patient is happy with the progress that has been achieved and education was given regarding activities to continue at home to promote carryover/generalization of skills. Patient has met goals for speech intelligibility and swallowing and ST is no longer warranted at this time. Plan of Care ST Services Indicated No
--- NOTE | 2023-09-06 13:29 | PCOTNOTE ---
Patient discharged with HEP; >30 days since last treatment.
== END 2023-01-09 15:46 | disposition home or self-care (01) ==
LOC: CHSST 13:00
DX: R47.9 Unspecified speech disturbances (principal); R26.89 Other abnormalities of gait and mobility; R49.0 Dysphonia
CPT/HCPCS: 92507; 92526; 97110; 97112; 97530

== ENCOUNTER 2023-01-28 15:09 | Emergency (ER) | payer MEDICARE, OTHER, SELFPAY ==
--- NOTE | ~2023-01-28 | XR_ITS ---
EXAMINATION: XR chest 2V Exam Date/Time: 01/28/2023 15:51 CDT HISTORY: Weakness Comparison: 10/11/2019. RESULT: Lines, tubes, and devices: None. Lungs and pleura: Senescent and emphysematous change. Chronic costophrenic angle blunting. Cardiomediastinal silhouette: Stable. Other: No acute osseous or upper abdominal finding. IMPRESSION: No acute cardiopulmonary process. Reviewed, dictated and finalized at location K.
[2023-01-28 15:24] VITALS: BP 102/57; PULSE 77; RESP 19; TEMP 37; O2SAT 99
--- NOTE | 2023-01-28 15:38 | ECG_ITS ---
Measurements Intervals [place] Rate: 68 P: 58 IN: 151 QRS: 14 QRSD: 79 T: 44 QT: 396 QTc: 422 Interpretive Statements SINUS RHYTHM NORMAL ECG COMPARED TO ECG 09/12/2020 14:46:06 NO SIGNIFICANT CHANGES Electronically Signed On 01-28-2023 21:59:07 CDT by Aurelio Rg D.O.
[2023-01-28 15:42] VITALS: PULSE 69
[2023-01-28 15:44] LABS: Basophils Percent Auto 0.3 % (0.2-1.2); Hematocrit 39.9 % (37.0-47.0); Hemoglobin 12.9 g/dL (12.0-15.0); Immature Granulocyte Absolute 0.01 K/mm3 (0.00-0.031); Immature Granulocyte Percent A 0.3 % (0-0.5); Lymphocytes Absolute Auto 0.82 K/mm3 (0.9-3.2); Lymphocytes Percent Auto 20.7 % (18.3-44.2); Mean Corpuscular HGB Conc 32.3 g/dl (32-36); Mean Corpuscular Hemoglobin 30.1 pg (26-34); Mean Platelet Volume 10.4 fl (7.4-10.4); Monocytes Absolute Auto 0.6 K/mm3 (0.1-0.6); Monocytes Percent Auto 13.9 % (2.6-8.5); Neutrophils Absolute Auto 2.6 K/mm3 (1.3-6.7); Neutrophils Percent Auto 64.8 % (45.5-73.1); Platelet Count Result 205 k/mm3 (150-375); Red Blood Count 4.29 M/mm3 (4.2-5.4); Red Cell Distribution Width 13.2 % (11.5-14.5)
[2023-01-28 16:01] LABS: Alanine Aminotransferase 23 U/L (6-35); Albumin Level 4.1 g/dL (3.5-5.1); Alkaline Phosphatase 90 U/L (38-126); Anion Gap 9 mmol/L (8-16); Aspartate Amino Transferase 36 U/L (14-36); Bilirubin,Total 0.4 mg/dL (0.2-1.3); Blood Urea Nitrogen 19 mg/dL (7-17); Calcium 8.6 mg/dL (8.4-10.2); Carbon Dioxide 26 mmol/L (22-30); Chloride 99 mmol/L (98-107); Estimated CRCL calculation 53 ml/min; Estimated Glomerular Filt Rate > 60; Glucose 82 mg/dL (65-110); Potassium 3.8 mmol/L (3.4-5.0); Sodium 134 mmol/L (137-145)
[2023-01-28 16:44] VITALS: BP 102/64; PULSE 73; RESP 18; O2SAT 99
[2023-01-28] MEDS: SODIUM CHLORIDE 0.9% IV 1,000 ML 999 ML IV CONT (17:01)
[2023-01-28] MEDS: ONDANSETRON INJ 4 MG/2 ML VIAL IV PUSH (17:01)
[2023-01-28 17:33] LABS: Lipase 94 U/L (23-300)
[2023-01-28 17:43] LABS: Influenza A QL RT-PCR Negative (Negative); Influenza B QL RT-PCR Negative (Negative); SARS-CoV-2 RNA PCR Positive (Negative)
[2023-01-28 17:46] LABS: Troponin I < 0.012 ng/mL (0.000-0.034)
[2023-01-28 18:13] LABS: Appearance Urine Turbid (Clear); Bacteria Urine 4+ /hpf; Bilirubin Urine Negative (Negative); Blood Urine 2+ (Negative); Color Urine Yellow (Yellow); Glucose Urine UA Negative (Negative); Ketones Urine 4+ mg/dL (Negative); Leukocyte Esterase Ur 3+ LEU/UL (Negative); Need Manual Microscopic Reviewed; Nitrate Urine Negative (Negative); Protein Urine 2+ mg/dL (Negative); RBC Urine 21-50 /hpf (0-2); Specific Grav Ur 1.025 (1.001-1.035); Squamous Epithelial Cell Urine Moderate /hpf (Few); WBC Urine >100 /hpf
[2023-01-28 18:21] LABS: Add Urine Microscopic? YES
--- NOTE | 2023-01-28 18:50 | ED.WEAKNESS ---
HPI - Weakness General Chief complaint: Weakness Stated complaint: weakness, cough Time Seen by Provider: 01/28/23 16:09 Source: patient and RN notes reviewed Mode of arrival: ambulatory Limitations: no limitations History of Present Illness HPI Narrative: This is a 72 year old female who presents from home for evaluation of cough and low grade fever. She reports nonproductive cough and t max 99.3 F. She denies chest pain , vomiting or shortness of breath. She reports nausea, decreased appetite, indigestion and weakness. She uses a walker to ambulate and she has been able to walk. She has not fallen during this illness. Her states their son flu in from [place] on Sunday, and he was having congestion thought to be due to seasonal allergies. He took allergy medication and his symptoms improved. Related Data Allergies Allergy/AdvReac Type Severity Reaction Status Date / Time ciprofloxacin Allergy Intermediate Unknown Verified 01/28/23 15:39 codeine Allergy Intermediate DIZZINESS, Verified 01/28/23 15:39 VOMITING Iodinated Contrast Media Allergy Unknown Rash Verified 01/28/23 15:39 cefdinir Allergy Unknown Verified 01/28/23 15:39 dextrose Allergy Unknown Verified 01/28/23 15:39 iodine Allergy Unknown Verified 01/28/23 15:39 levofloxacin Allergy Unknown Verified 01/28/23 15:39 metrizamide Allergy Unknown Verified 01/28/23 15:39 shellfish derived Allergy Unknown Verified 01/28/23 15:39 CIPROFLOXACIN HCL Allergy Intermediate Unknown Uncoded 01/28/23 15:39 PSEUDOEPHEDRINE HCL Allergy Mild Unknown Uncoded 09/12/20 16:59 PROPOXYPHENE HCL Allergy Unknown Vomiting Uncoded 09/12/20 16:59 Review of Systems Constitutional: Constitutional: Reports fatigue and Reports weakness ENT: Reports sore throat Cardiovascular: Cardiovascular: Denies syncope, Denies rapid heart rate, Denies irregular heart rhythm, Denies leg edema and Denies dyspnea Respiratory: Respiratory: Denies chest congestion, Reports cough, Denies hemoptysis, Denies excessive phlegm production and Denies dyspnea Gastrointestinal: Gastrointestinal: Denies abdominal pain, Denies hematochezia, Denies diarrhea, Reports nausea and Denies vomiting Genitourinary: Genitourinary: Denies hematuria and Denies dysuria Musculoskeletal: Musculoskeletal: Denies joint swelling, Denies loss of height and Denies muscle weakness Neurologic: Denies syncope, Denies focal weakness and Denies weakness [facility] Past Medical History Medical History (Updated 01/28/23 @ 19:02 by Arabella Giordano MD) Anemia Bronchitis GERD (gastroesophageal reflux disease) Pulmonary hypertension Shingles Sjogren's syndrome Surgical History Surgical History History of right oophorectomy Hx of hysterectomy Hx of tonsillectomy Social History Social History Smoking status: Never smoker Gender identity (if verbalized by the patient): Female Exam Const: General: alert Nutritional Appearance: thin Orientation/consciousness: patient oriented x3 HENMT: Head: normal to inspection Face/Nose/Sinus: Normal external nose present Throat: posterior oropharynx normal and uvula midline Eyes: EOM: EOMs intact bilaterally Neck: Neck: normal visual inspection Chest: Chest palpation & inspection: normal inspection of the chest Resp: Effort & Inspection: normal respiratory effort Auscultation: clear to auscultation bilaterally Cardio: Rate: regular rate Rhythm: regular rhythm Heart sounds: no murmurs GI: GI Palp: Yes Soft to palpation, No Tenderness to palpation present (GI), No Guarding due to palpation present (GI) and No Rigid due to palpation Auscultation: normal bowel sounds Skin: General skin exam: normal color Rashes: no rashes Wounds: no wounds Neuro: General: patient oriented x3, moves all extremities and CN's II-XI intact bilaterally Extrem: General: normal to in
[2023-01-28] MEDS: NITROFURANTOIN MONOHYD MACROCR 100 MG CAP PO (19:01)
[2023-01-28 19:04] VITALS: BP 112/70; PULSE 71; RESP 18; O2SAT 99
--- NOTE | 2023-01-28 19:18 | PC.NURSE ---
This RN assumed care of patient.
[2023-01-28 19:45] VITALS: BP 112/70; PULSE 50; RESP 18; O2SAT 98
== END 2023-01-28 19:45 | disposition home or self-care (01) ==
PROVIDERS: Emergency Medicine; Emergency Provider General Practice; PCP Family Medicine
DX: U07.1 COVID-19 (principal); N39.0 Urinary tract infection, site not specified; D64.9 Anemia, unspecified; K21.9 Gastro-esophageal reflux disease without esophagitis; I27.20 Pulmonary hypertension, unspecified; M35.00 Sjogren syndrome, unspecified; Z90.710 Acquired absence of both cervix and uterus; Z90.721 Acquired absence of ovaries, unilateral
CPT/HCPCS: 36415; 71046; 80053; 81001; 83690; 84484; 85025; 87086; 87088; 87636; 93005; 96361; 96374; 99284; A9270; J2405; J7030

== ENCOUNTER 2023-01-30 15:16 | Emergency (ER) | payer MEDICARE, OTHER, SELFPAY ==
--- NOTE | ~2023-01-30 | XR_ITS ---
EXAMINATION: XR chest 2V Exam Date/Time: 01/30/2023 15:43 CDT HISTORY: sob, GENERAL WEAKNESS Comparison: 01/27/2023. RESULT: Lines, tubes, and devices: None. Lungs and pleura: Leftward rotation in the frontal view Senescent/emphysematous change, otherwise cl ear. Minimally increased mild bilateral costophrenic angle blunting. Cardiomediastinal silhouette: Stable. Other: No acute osseous or upper abdominal finding. IMPRESSION: Minimally increased bilateral costophrenic angle blunting may represent new trace bilateral pleural e ffusions, overlying chronic pleural parenchymal scarring. Reviewed, dictated and finalized at location K. IMPRESSION: Minimally increased bilateral costophrenic angle blunting may represent new tra ce bilateral pleural effusions, overlying chronic pleural parenchymal scarring.
[2023-01-30 15:33] VITALS: BP 102/69; PULSE 67; RESP 16; TEMP 36.6; O2SAT 100
--- NOTE | 2023-01-30 15:37 | ECG_ITS ---
Measurements Intervals [place] Rate: 60 P: 62 FL: 146 QRS: 22 QRSD: 89 T: 56 QT: 422 QTc: 425 Interpretive Statements SINUS RHYTHM BASELINE ARTIFACT- I, II, III ,AVR ,AVL NORMAL ECG COMPARED TO ECG 01/28/2023 15:51:30 NO SIGNIFICANT CHANGES Electronically Signed On 01-30-2023 20:51:19 CDT by Aurelio Rg D.O.
[2023-01-30 15:53] LABS: Hemoglobin 12.6 g/dL (12.0-15.0); Immature Granulocyte Absolute 0.01 K/mm3 (0.00-0.031); Immature Granulocyte Percent A 0.4 % (0-0.5); Lymphocytes Absolute Auto 0.61 K/mm3 (0.9-3.2); Lymphocytes Percent Auto 25.1 % (18.3-44.2); Mean Corpuscular HGB Conc 32.3 g/dl (32-36); Mean Corpuscular Hemoglobin 30.1 pg (26-34); Mean Corpuscular Volume 93.3 fl (80-100); Mean Platelet Volume 10.6 fl (7.4-10.4); Monocytes Absolute Auto 0.4 K/mm3 (0.1-0.6); Monocytes Percent Auto 14.4 % (2.6-8.5); Neutrophils Absolute Auto 1.5 K/mm3 (1.3-6.7); Neutrophils Percent Auto 60.1 % (45.5-73.1); Platelet Count Result 166 k/mm3 (150-375); Red Blood Count 4.18 M/mm3 (4.2-5.4); Red Cell Distribution Width 13.2 % (11.5-14.5); White Blood Count 2.4 K/mm3 (4.5-10.0)
[2023-01-30 16:01] LABS: Alanine Aminotransferase 22 U/L (6-35); Albumin Level 3.9 g/dL (3.5-5.1); Alkaline Phosphatase 81 U/L (38-126); Anion Gap 7 mmol/L (8-16); Aspartate Amino Transferase 46 U/L (14-36); Bilirubin,Total 0.5 mg/dL (0.2-1.3); Blood Urea Nitrogen 19 mg/dL (7-17); Calcium 8.6 mg/dL (8.4-10.2); Carbon Dioxide 27 mmol/L (22-30); Chloride 101 mmol/L (98-107); Estimated CRCL calculation 71 ml/min; Estimated Glomerular Filt Rate > 60; Glucose 96 mg/dL (65-110); Potassium 3.5 mmol/L (3.4-5.0); Sodium 135 mmol/L (137-145)
--- NOTE | 2023-01-30 19:01 | ED.GENADULT ---
HPI - General Adult General Chief complaint: Upper Respiratory Infection Stated complaint: covid positive/low oxygen/body aches Time Seen by Provider: 01/30/23 18:27 Source: patient Mode of arrival: ambulatory Limitations: no limitations History of Present Illness HPI narrative: This is a 72-year-old female who presents to the ED with chief complaint of being COVID-positive and hypoxic at home. States she had several home readings yesterday that read 91, 90 to 93%. She presents to our emergency department 100% on room air. Patient states that she is not short of breath at all and has not been at home either. Denies any chest pain, abdominal pain, nausea, vomiting. States she feels very generally weak and has had difficulty getting around at home. Endorses sinus pressure and ear fullness. Denies fevers, chills. Related Data Allergies Allergy/AdvReac Type Severity Reaction Status Date / Time ciprofloxacin Allergy Intermediate Unknown Verified 01/28/23 15:39 codeine Allergy Intermediate DIZZINESS, Verified 01/28/23 15:39 VOMITING Iodinated Contrast Media Allergy Unknown Rash Verified 01/28/23 15:39 cefdinir Allergy Unknown Verified 01/28/23 15:39 dextrose Allergy Unknown Verified 01/28/23 15:39 iodine Allergy Unknown Verified 01/28/23 15:39 levofloxacin Allergy Unknown Verified 01/28/23 15:39 metrizamide Allergy Unknown Verified 01/28/23 15:39 shellfish derived Allergy Unknown Verified 01/28/23 15:39 CIPROFLOXACIN HCL Allergy Intermediate Unknown Uncoded 01/28/23 15:39 PSEUDOEPHEDRINE HCL Allergy Mild Unknown Uncoded 09/12/20 16:59 PROPOXYPHENE HCL Allergy Unknown Vomiting Uncoded 09/12/20 16:59 Review of Systems Review of Systems: CONSTITUTIONAL: Denies fever, chills, or sweats. EYES: Denies visual changes, redness, or discharge. ENT: Denies rhinorrhea, congestion, sore throat, or otalgia. CARDIOVASCULAR: Denies chest pain, palpitations, or edema. RESPIRATORY: See HPI GASTROINTESTINAL: Denies abdominal pain, nausea, vomiting, or diarrhea. GENITOURINARY: Denies dysuria or hematuria. SKIN: Denies rash or itching. MUSCULOSKELETAL: Denies back pain, joint pain, or myalgia. NEUROLOGIC: Denies headache, numbness, dizziness, or weakness. PSYCHIATRIC: Denies anxiety or depression. [facility] Past Medical History Medical History (Updated 01/30/23 @ 19:57 by Martin Kerr PA-C) Anemia Bronchitis GERD (gastroesophageal reflux disease) Pulmonary hypertension Shingles Sjogren's syndrome Surgical History Surgical History History of right oophorectomy Hx of hysterectomy Hx of tonsillectomy Social History Social History Smoking status: Never smoker Gender identity (if verbalized by the patient): Female Exam Narrative: GENERAL: Very thin. No acute distress. Appears dry. HEAD: Normocephalic, atraumatic. EYES: PERRLA and EOMI. ENT: Nares clear, no rhinorrhea or epistaxis. Mucous membranes moist. Oropharynx without tonsillar hypertrophy exudate or other lesions. NECK: Supple. No adenopathy or masses. CHEST: No respiratory distress. Clear to auscultation. No wheezes rales or rhonchi. Sats 99% on room air. Did not go below 96% on walking desaturation test. HEART: Regular rate and rhythm. No murmur heard. Normal peripheral pulses. ABDOMEN: Soft, nontender, nondistended, normal active bowel sounds. MSK: Normal range of motion. No edema. SKIN: Warm, dry, no rash. NEURO: Alert and oriented x3. No focal deficits. PSYCH: Normal mood and affect. Course Vital Signs Vital signs: Vital Signs Temperature 97.9 F 01/30/23 15:33 Pulse Rate 67 01/30/23 15:33 Respiratory Rate 16 01/30/23 15:33 Blood Pressure 102/69 01/30/23 15:33 Pulse Oximetry 100 01/30/23 15:33 Oxygen Delivery Room Air 01/30/23 15:33 Temperature 97.9 F 01/30/23 15:33 Pulse Rate 63 01/30/23 19:52 Res
[2023-01-30 19:09] VITALS: BP 150/74; PULSE 62; RESP 22; O2SAT 100
[2023-01-30 19:11] LABS: Appearance Urine Cloudy (Clear); Bacteria Urine 4+ /hpf; Bilirubin Urine Negative (Negative); Blood Urine Trace (Negative); Color Urine Dark Yellow (Yellow); Glucose Urine UA Negative (Negative); Ketones Urine 3+ mg/dL (Negative); Leukocyte Esterase Ur 2+ LEU/UL (Negative); Need Manual Microscopic Reviewed; Nitrate Urine Positive (Negative); Non Pathogenic Casts 0-2; Protein Urine 1+ mg/dL (Negative); Specific Grav Ur 1.022 (1.001-1.035); Squamous Epithelial Cell Urine Moderate /hpf (Few); WBC Urine >100 /hpf; pH Urine 6.5 (5.0-9.0)
[2023-01-30 19:12] LABS: Add Urine Microscopic? YES
[2023-01-30] MEDS: SODIUM CHLORIDE 0.9% IV 1,000 ML 999 ML IV CONT (19:29)
[2023-01-30 19:52] VITALS: BP 143/68; PULSE 63; RESP 20; O2SAT 100
[2023-01-30 20:53] VITALS: BP 156/54; PULSE 66; RESP 15; O2SAT 100
== END 2023-01-30 20:54 | disposition home or self-care (01) ==
PROVIDERS: Family Medicine; Emergency Provider Physician Assistant; PCP Family Medicine
DX: U07.1 COVID-19 (principal); I27.20 Pulmonary hypertension, unspecified; M35.00 Sjogren syndrome, unspecified; K21.9 Gastro-esophageal reflux disease without esophagitis; R82.998 Other abnormal findings in urine; Z86.2 Personal history of diseases of the blood and blood-forming organs and certain disorders involving the immune mechanism; Z90.721 Acquired absence of ovaries, unilateral; Z90.710 Acquired absence of both cervix and uterus
CPT/HCPCS: 36415; 71046; 80053; 81001; 85025; 87086; 87088; 93005; 96360; 99283; J7030